=== PATIENT | male | born 1970 | race Caucasian/White ===

== ENCOUNTER 2016-10-07 20:14 | Inpatient (IN) | payer OTHER ==
--- NOTE | ~2016-10-07 | CR84 ---
[facility] A Service of [facility] & [facility] RADIOLOGY TEXT RESULTS PATIENT: CRISTINA RODRÍGUEZ LOCATION: [facility] 579-01 : [birth year] UNIT #: [id number] AGE: [address]: Kim Marques MD SEX: M ORDER DR: [id number] [facility] [address] [facility]. [place], [place] [address] [id number] I MR#: [id number] Acc #: [id number] NAME: CRISTINA RODRÍGUEZ : 1970 SEX: M STUDY DATE/TIME: 10/09/2016 15:22 UNIT: [facility] ROOM: [facility] STUDY DESCRIPTION: CR ERCP Biliary and Pancr SI Attending Physician: Kim Marques M.D. Ordering Physician: Xiang Sylvester M.D. Primary Care Physician: No Primary Care Physician MEDICAL IMAGING REPORT This report is preliminary unless electronic signature is present EXAM ERCP interpretation only INDICATIONS 46-year-old male with common bile duct obstruction. FINDINGS The fluoro time was 2 minutes and 28 seconds. 8 images were submitted. Study demonstrates a very narrow common bile duct. There was filling of the gallbladder. Endoscopist reports that a sphincterotomy was performed. Please refer to ERCP report for complete details. Dictated by... Inocencio Carias M.D. THIS IS AN ELECTRONICALLY VERIFIED REPORT Inocencio Carias M.D. at 10/11/2016 9:06 AM KATIANA/olaf TD: 10/10/2016 11:16 JOB #: [id number] MEDICAL IMAGING REPORT Page 1 of 1 COPY
--- NOTE | ~2016-10-07 | CO ---
Unit #: [id number] #: [id number] Patient: REGGIE RODRÍGUEZ [id number] [address] [place], [place] [address] [id number] I MR#: [id number] NAME: REGGIE RODRÍGUEZ ROOM: 579 Age: 46 Sex: M Admission Date: 10/08/2016 : 1970 Attending Physician: Kim Marques M.D. Consultation Date: 10/10/2016 CONSULTATION REPORT REASON FOR CONSULTATION Followup. DISCUSSION Mr. Reggie Rodríguez is a 46-year-old white male, seen on 10/10/2016 in room 579 at [facility]. The patient's brother was at the bedside. The patient was somewhat drowsy, sleepy, and unable to answer questions coherently but answer some of the questions. The patient again reported that he does not want any medication for his mood. The patient has a longstanding history of cannabis abuse. The patient is still having problem with anger, temper, mood lability but no aggressive behavior. Denied any thoughts of harming self or others. REVIEW OF SYSTEMS Complete review of systems is unremarkable except as mentioned above. MENTAL STATUS EXAMINATION General appearance, the patient dressed in hospital attire. Attention span and concentration, poor. Speech, slow. Orientation in place. Mood and affect were sad, dysphoric, flat. Thought process, circumstantial. Thought content, guarded. Recent and remote memory, poor. Language, able to name object. Fund of knowledge, impaired. Insight and judgment, impaired. DIAGNOSES Psychiatric: 1. Bipolar mood disorder, not otherwise specified, F31.89. 2. Cannabis abuse, moderate, F12.20. ASSESSMENT/PLAN 1. Supportive psychotherapy and psychoeducation provided to patient and family. 2. Advised to continue with current treatment and given information about medication. At this time, the patient does not want to travel. We will continue to follow. Consider medication if needed. Continue with the treatment on the inpatient unit at this time. Please feel free to call if any questions, telephone #[phone]. Dictated by... Ramsey Samayoa M.D. BETHANY/lexi Unit #: [id number] #: [id number] Patient: REGGIE RODRÍGUEZ TD: 10/11/2016 03:55 JOB #: [id number] CONSULTATION REPORT Page 1 of 1 X Ramsey Samayoa MD CONSULTATION REPORT
--- NOTE | ~2016-10-07 | HP ---
Unit #: [id number] #: [id number] Patient: CRISTINA RODRÍGUEZ [id number] [address] [id number] I MR#: [id number] NAME: CRISTINA RODRÍGUEZ ROOM: 579 Age: 46 Sex: M Admission Date: 10/08/2016 : 1970 Attending Physician: Kim Marques M.D. Primary Care Physician: No Primary Care Physician HISTORY AND PHYSICAL CHIEF COMPLAINT Jaundice. HISTORY OF PRESENT ILLNESS 46-year-old with a history of alcohol abuse, admitted because of jaundice. According to him, it started two days prior to the admission. He noticed that his skin, his eyes are yellow. He also noticed that his stools are very pale. He complained of nausea and vomiting and diarrhea. No abdominal pain. No abdominal swelling, no leg swelling. No fever, no chills. PAST MEDICAL HISTORY 1. History of hyperlipidemia. 2. Kidney stones. PAST SURGICAL HISTORY History of left knee surgery and right wrist surgery. SOCIAL HISTORY Smokes one pack of cigarettes per day. He uses marijuana almost every day. He uses alcohol every day but stopped taking past three weeks. He uses six to twelve beers a day. FAMILY HISTORY Positive for liver cancer in his mother. ALLERGIES None. CURRENT HOME MEDICATIONS Aspirin 325 p.o. daily. REVIEW OF SYSTEMS No headache, no visual changes. Complaining of a nodule in his right arm on the lateral side since two years. No chest pain, no skin rash. Reviewed twelve point system with him which are negative except as in HPI. No weakness, numbness, tingling. PHYSICAL EXAMINATION VITAL SIGNS: Temperature 98.1, pulse 94, respirations 16, blood pressure 156/92. GENERAL EXAMINATION: 46-year-old lying on bed, alert, oriented x3. Hard of hearing mildly. HEENT: Pupils equally reacting to light and accommodation. No pallor. Unit #: [id number] #: [id number] Patient: CRISTINA RODRÍGUEZ Jaundice present. NECK: Supple. HEART: S1, S2 heard. No murmurs. LUNGS: Clear to auscultation. No crackles, no rhonchi. ABDOMEN: Soft, nontender. Bowel sounds are present. EXTREMITIES: No pedal edema. SKIN: No rash. EXTREMITIES: Right lateral arm shows nodular-like density, likely intramuscular in the right lateral arm. Mildly tender on palpation. No signs of infection, no erythema, no abscess. DIAGNOSTIC STUDIES LAB DATA: WBC 8.6, hemoglobin 16.3, platelets 370. Urine drug screen positive for marijuana. Urinalysis shows WBC 5-10, bacteria 1+, trace leukocyte esterase. INR 1.3, sodium 135, potassium 3.5, creatinine 0.4. AST 47, ALT 122, alkaline phosphatase 236. Total bilirubin 14.2, albumin 3.7, lipase 27, Tylenol level less than 10, alcohol less than 5. CAT scan of abdomen shows intrahepatic ductal dilatation present. No extrahepatic duct dilatation. Concern for mass. Further evaluation with MRCP or ERCP recommended. ASSESSMENT AND PLAN 46-year-old admitted because of jaundice. Painless jaundice: The patient will have GI evaluation. Most likely, he needs ERCP or MRCP. I am going to check acute hepatitis panel. His alcohol level is less than 5. He does have alcohol abuse. Alcohol dependence: High risk of DTs. Monitor closely. Smoking: I am going to give him a nicotine patch. Hemoconcentration, most likely secondary to smoking and hypoxia: I am going to put him on O2 if needed. Continue with nicotine patch. I am going to also give him normal saline at 100 mL/hour. Urinary tract infection: Do urine cultures and blood cultures and start him on Rocephin and monitor his vitals. Marijuana and smoking: Advised to quit. Hypertension, uncontrolled: I am going to give him metoprolol. Dictated by Blanca Cope TD: 10/09/2016 05:33 JOB #: [id number] Unit #: [id number] #: [id number] Patient: CRISTINA RODRÍGUEZ HISTORY AND PHYSICAL Page 1 of 1 X Kim Marques MD HISTORY AND PHYSICAL
--- NOTE | ~2016-10-07 | CO ---
Unit #: [id number] #: [id number] Patient: REGGIE PIMENTEL [id number] [facility]. [place], [place] [address] [id number] I MR#: [id number] NAME: REGGIE PIMENTEL ROOM: 579 Age: 46 Sex: M Admission Date: 10/08/2016 : 1970 Attending Physician: Kim Marques M.D. Primary Care Physician: No Primary Care Physician Consultation Date: 10/09/2016 CONSULTATION REPORT CHIEF COMPLAINT Bipolar disorder, substance abuse/marijuana abuse. HISTORY OF PRESENT ILLNESS Mr. Reggie Pimentel is a 46-year-old white male seen on 10/09/16 in room 579 at [facility]. Patient was admitted on 10/07/16. Patient was admitted with jaundice, has a history of cirrhosis. Patient was having nausea, vomiting and diarrhea at the time of admission. Patient has a history of kidney stone, hyperlipidemia. Patient reported that he has been using marijuana on a daily basis to treat his bipolar. Patient reported that he does not trust any doctors or medication and would like to stay with the marijuana. Patient reported that he has used alcohol but stopped three weeks ago. Patient uses 6 to 12 beers a day. Patient currently does not want any treatment for his drinking or marijuana or for bipolar disorder. Patient however denied any suicidal or homicidal ideation, denied any psychotic symptoms but irritable, mood lability, anger, temper. PAST PSYCHIATRIC HISTORY Past psychiatric history is remarkable for history of substance abuse as mentioned above, history of bipolar disorder. Patient was on different medication, details unknown at this time. MEDICAL HISTORY History is remarkable for history of hyperlipidemia, kidney stones, jaundice, cirrhosis. MEDICATION HISTORY Patient is currently on aspirin at home. ALLERGIES No known drug allergies. FAMILY HISTORY AND SOCIAL HISTORY Patient reports he lives by himself, has a poor support system, no history of any abuse, history of substance abuse, alcohol and marijuana as mentioned above. REVIEW OF SYSTEMS Complete review of systems is remarkable for anxiety, agitation, mood lability, irritability. VITAL SIGNS Unit #: [id number] #: [id number] Patient: REGGIE PIMENTEL 98.4, 94, 16, 156/92. MENTAL STATUS EXAMINATION General appearance, patient dressed casually in hospital attire. Attention span and concentration poor. Speech rapid, loud. Oriented in time, place and person. Mood and affect irritable, angry, mad, agitated. Thought process was circumstantial. Thought content guarded, paranoid but denied thoughts of harming self or others. Recent and remote memory poor. Language, able to name objects, repeat phrases. Fund of knowledge fair. Insight and judgment are fair to poor. DIAGNOSES PSYCHIATRIC: 1. Cannabis abuse, moderate, F12.20. 2. Alcohol use disorder, severe, F10.20. 3. Bipolar mood disorder, not otherwise specified, F31.80. SECONDARY: Deferred MEDICAL: Please refer to H and P. STRESSORS: Psychosocial stressors. ASSESSMENT AND PLAN 1. Supportive psychotherapy and psychoeducation provided to patient. 2. Educated about benefits and side-effects of medication and course and prognosis of illness. Patient was educated about different medication but patient does not want to try any medication for his mood disorder at this time. 3. Advised patient to maintain sobriety which he thinks that he does not have any problem, poor insight. 4. Patient was also given information about CDIOP program at [facility], , in case if he considers. 5. Please feel free to call if any question, telephone number [phone]. Dictated by... Blanca Cortez/rudi TD: 10/10/2016 19:12 JOB #: [id number] Unit #: [id number] #: [id number] Patient: REGGIE PIMENTEL CONSULTATION REPORT Page 1 of 1 X Ramsey Samayoa MD CONSULTATION REPORT
--- NOTE | ~2016-10-07 | CT4 ---
[facility] A Service of [facility] & [facility] RADIOLOGY TEXT RESULTS PATIENT: CRISTINA RODRÍGUEZ LOCATION: [facility] 579-01 : [birth year] UNIT #: [id number] AGE: [address]: Kim Marques MD SEX: M ORDER DR: [id number] [address] [address] [id number] I MR#: [id number] #: [id number] NAME: CRISTINA RODRÍGUEZ : 1970 SEX: M STUDY DATE/TIME: 10/07/2016 21:12 UNIT: SEDOF ROOM: [id number] STUDY DESCRIPTION: CT Abd and Pelv Wo Cont Attending Physician: Kim Marques M.D. Ordering Physician: Logan Valle M.D. Primary Care Physician: No Primary Care Physician MEDICAL IMAGING REPORT This report is preliminary unless electronic signature is present. EXAM CT abdomen and pelvis without contrast. HISTORY 46-year-old male complains of abdomen being sore to touch, dark-colored urine, jaundiced, nausea, vomiting onset 2 weeks ago. History of kidney stones and daily user of marijuana. COMPARISON CT abdomen and pelvis, 10/13/2014. TECHNIQUE Axial images performed through the abdomen and pelvis without contrast. Multiplanar reconstructed images reviewed at a workstation. This CT exam was performed with one or more of the following radiation dose reduction techniques: automatic exposure control, adjustment of mA and/or kV according to patient size, and iterative reconstruction. FINDINGS ABDOMEN: Lung bases unremarkable. The liver demonstrates extensive intrahepatic ductal dilatation but no definite dilatation of the common bile duct. This raises a concern for possible centrally obstructing lesion. Further evaluation with MRCP, ERCP, as well as contrasted CT of the liver may be of benefit. Gallbladder unremarkable and nondistended. The spleen appears normal. Pancreas unremarkable. The adrenal glands appear normal. There is a subtle low-attenuation lesion in the right kidney measuring about 3 cm with some peripheral calcifications. This does not appear significantly changed from CT of 10/13/2014. Visualized GI tract remarkable for moderate gastric distension. Small and large bowel unremarkable. The appendix is normal. There are a few scattered colonic diverticula. Retroperitoneum unremarkable. [facility] A Service of [facility] & [facility] RADIOLOGY TEXT RESULTS PATIENT: CRISTINA RODRÍGUEZ LOCATION: [facility] 579-01 : [birth year] UNIT #: [id number] AGE: [address]: Kim Marques MD SEX: M ORDER DR: PELVIS: Bladder and prostate appear normal. Osseous structures and soft tissues appear normal. IMPRESSION 1. Extensive intrahepatic ductal dilatation without discrete abnormality. There does not appear to be dilatation of the extrahepatic ducts and this raises concern for a possible central mass or obstruction. Further evaluation with MRCP, ERCP, as well as a dedicated contrasted CT the liver may be of benefit. Gallbladder normal. 2. Probable complex cyst right kidney unchanged. Dictated by... Ganga Carias M.D. THIS IS AN ELECTRONICALLY VERIFIED REPORT Ganga Carias M.D. at 10/08/2016 10:52 PM HUSSAIN/thomas TD: 10/08/2016 12:26 JOB #: [id number] MEDICAL IMAGING REPORT Page 1 of 1
--- NOTE | ~2016-10-07 | OR ---
Unit #: [id number] #: [id number] Patient: CRISTINA RODRÍGUEZ [id number] [address] [place], [place] [address] [id number] Vidhi MR#: [id number] NAME: CRISTINA RODRÍGUEZ ROOM: 579 Date of Procedure: 10/09/2016 Admission Date: 10/08/2016 Surgeon: Xiang Sylvester M.D. : 1970 Attending Physician: Kim Marques M.D. Primary Care Physician: Primary Care Physician No OPERATIVE REPORT PREOPERATIVE DIAGNOSIS Deep obstructive painless jaundice. PROCEDURES PERFORMED 1. Endoscopic retrograde cholangiopancreatography and sphincterotomy. 2. Endoscopic retrograde cholangiopancreatography and brushings. POSTOPERATIVE DIAGNOSES The common bile duct was almost like a thread or a strand throughout and the opacification in the cholangiogram did not show any focal area of stricturing, in fact the whole common duct was like a sliver. There was some dilated leaks of bile in the right hepatic duct, which could be demonstrated after deep cannulation. After sphincterotomy, the brushings were obtained and we were barely able to inflate a 9 mm balloon in the the distal half of the common bile duct. The cystic duct was patent and there were gallstones in the neck of the gallbladder. RECOMMENDATIONS The cholangiographic appearances are highly suggestive of cholangiocarcinoma involving the hilar area. Decompression of the biliary tree may require percutaneous transhepatic cholangiography. After completion of procedure, I contacted Dr. Elva Joy at [facility] and he is agreed to do a repeat ERCP on coming Sunday and the patient will be transferred for the procedure on that day. In addition, I also spoke with the patient's brother in the hospital and patient's sister at her home telephonically and explained the findings and management plan. In the meantime, the patient was stayed in the hospital as a high risk of bacteremia from cholangitis and obstructive biliary tree. He will continue to be on IV antibiotics. SEDATION USED MAC. DESCRIPTION OF PROCEDURE Following detailed explanation of the potential risks and complications of an ERCP, namely perforation, bleeding, and complications related to sedation, and pancreatitis, the patient was brought to GI lab and laid in the left semiprone position. Sedation using MAC was given. Lateral-viewing duodenoscope was advanced through the oral cavity into the esophagus and advanced into the stomach. Pylorus was intubated in the usual fashion. The scope was advanced in deep descending duodenum. Upon shortening the scope, major papilla and ampullary area was visualized en Unit #: [id number] #: [id number] Patient: CRISTINA RODRÍGUEZ. Using guidewire based cannulation, selective cannulation of common bile duct was performed and a cholangiogram was obtained. The patient had a sliver of common bile duct. In fact, look like an almost like a string throughout its course from common hepatic duct all the way up to the ampullary area. The cystic duct takeoff was opacified with a gallbladder. Contrast in the gallbladder showing a large stones in the neck of the gallbladder. We then proceeded with a sphincterotomy and brushings of the distal common bile duct. After brushings, a 9 mm balloon was used to occlude the duct to obtain occlusion cholangiogram. The only difference this time being large bile leaks demonstrable on the right hepatic lobe in the occlusion cholangiogram. The scope and the accessories were then withdrawn. The patient returned to the recovery area. He will require a biliary decompression, most likely from PTC route. Dictated by... Blanca Yadav/lexi TD: 10/10/2016 05:45 JOB #: [id number] CC: Kim Marques M.D. OPERATIVE REPORT Page 1 of 1 X Xiang Sylvester MD X PROCEDURE OPERATIVE NOTE
--- NOTE | ~2016-10-07 | OR ---
Unit #: [id number] #: [id number] Patient: CRISTINA RODRÍGUEZ [id number] [address] [address] [id number] I MR#: [id number] NAME: CRISTINA RODRÍGUEZ ROOM: 579 Date of Procedure: 10/09/2016 Admission Date: 10/08/2016 Surgeon: Xiang Sylvester M.D. : 1970 Attending Physician: Kim Marques M.D. OPERATIVE REPORT PREOPERATIVE DIAGNOSES Deep jaundice and upper abdominal pain. PROCEDURES PERFORMED Upper gastrointestinal endoscopy and biopsy. POSTOPERATIVE DIAGNOSES 1. The patient had grade 1 distal erosive esophagitis. 2. There was mild focal patchy erosive duodenitis. 3. Rest of the examination up to third part of duodenum was normal. A biopsy was obtained from the antrum for CLOtest. RECOMMENDATIONS The patient will undergo ERCP a little later. SEDATION USED MAC. DESCRIPTION OF PROCEDURE Following detailed explanation of potential risks and complications of an upper endoscopy, namely perforation, bleeding, and complication related to sedation, the patient was brought to GI lab and laid in the left lateral decubitus position. Lubricated tip of the Olympus video upper endoscope was passed through the bite block into the proximal esophagus under direct vision. The entire esophageal mucosa was examined. The patient was noted to have grade 1 distal erosive esophagitis. The scope was then advanced into the gastric cavity and the latter was insufflated. Mucosa of the fundus, body, and antrum was examined and appeared unremarkable. Pylorus was intubated with visualization of the duodenal bulb. The latter was noted to have mild focal patchy erosive duodenitis. Second and third part of the duodenum were normal. Upon withdrawal and retroflexion, incisura, cardia, and greater curve was examined and biopsy was obtained from the antrum for CLOtest. The scope was then withdrawn in the distal esophagus. The entire esophageal mucosa was examined all the way up to pharynx. No additional findings were noted. The patient tolerated the procedure without any postprocedure complications. Dictated by... Blanca Yadav/lexi Unit #: [id number] #: [id number] Patient: CRISTINA RODRÍGUEZ TD: 10/10/2016 01:20 JOB #: [id number] OPERATIVE REPORT Page 1 of 1 X Xiang Sylvester MD PROCEDURE OPERATIVE NOTE
--- NOTE | ~2016-10-07 | CO ---
Unit #: [id number] #: [id number] Patient: CRISTINA PIMENTEL [id number] [address] [place], [place] [address] [id number] MR#: [id number] NAME: CRISTINA PIMENTEL ROOM: 579 Age: 46 Sex: M Admission Date: 10/08/2016 : 1970 Attending Physician: Kim Marques M.D. Consultation Date: 10/09/2016 CONSULTATION REPORT REASON FOR CONSULTATION Jaundice. HISTORY OF PRESENT ILLNESS Mr. Pimentel is a 46-year-old rather jovial white gentleman, who has presented with history of deep jaundice. He has also noticed symptoms of cholestasis in the form of pale coloration of the stool. He had some nausea, vomiting, and episode of diarrhea, the latter was gotten better. There is no history of abdominal pain or swelling. Also denies any history of fever, chills, or rigors. The patient denies any history of recent travel. Denies any history of skin rash, aphthous ulcers in the mouth, or reactive arthritis. PAST MEDICAL HISTORY Significant for history of renal stones and hyperlipidemia. The patient has had no prior abdominal surgeries. The only surgery is being left knee and right wrist surgery. SOCIAL HISTORY Drinks a pack of cigarette a day. Used marijuana on a daily basis and has been a heavy drinker for a long time, up to 12 beers a day, but has stopped drinking for the past 2 to 3 weeks. FAMILY HISTORY Significant liver cancer in his mother. HOME MEDICATIONS Include aspirin 325 mg p.o. daily. ALLERGIES He has no known drug allergies. REVIEW OF SYSTEMS Detailed review of organ systems does not reveal any recent weight loss. No history of fever, chills, or rigors. No history of headache, seizures, chest pain, or syncope. No history of cough, expectoration, or hemoptysis. No history of dysuria, hematuria, or pyuria. No history of focal seizures or extremity weakness. Rest of the review of organ systems detailed in the HPI. PHYSICAL EXAMINATION GENERAL: He is alert and oriented, comfortable, and deeply jaundiced. VITAL SIGNS: Stable with a temperature of 98, pulse 77 per minute and regular, respiratory rate is 18, blood pressure is 179/93. He weighs 254 Unit #: [id number] #: [id number] Patient: CRISTINA PIMENTEL pounds, which is close to his baseline weight. HEENT: He has mild pallor. There being deep icterus. No lymphadenopathy or peripheral edema. CARDIOVASCULAR: Normal heart sounds. No murmurs on auscultation. LUNGS: Reveal normal breath sounds. Good air entry. ABDOMEN: Soft and nontender. Liver is just palpable below the right costal margin. It is firm, smooth, and nontender. Liver and spleen are not palpable. Bowel sounds normal. Hernia sites are also normal. DIAGNOSTIC STUDIES LABORATORY RESULTS: Shows a completely normal CBC, his MCV is also normal, and platelet count is normal, the latter indicating that there is no suggestion of chronic liver disease. INR is 1.0. Serum chemistries remarkable for normal BUN and creatinine, glucose of 157. The only abnormality being a bilirubin of 14 with mild elevation of AST ALT and alkaline phosphatase of 47, 122, and 236 respectively. Amylase and lipase are normal. Alcohol level was under 5. IMAGING STUDIES: The patient also had a CT scan of the abdomen and pelvis and the latter shows an extensive intrahepatic ductal dilation with common bile duct being not dilated. Thus raising concern for a hilar biliary obstruction. The patient does not have any lymph nodes in the vicinity. 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 In the common hepatic duct, there is may be a cholangiocarcinoma. An upper endoscopy and endoscopic retrograde cholangiopancreatography decided will be scheduled shortly. The pros and cons of procedures and potential risks and complications discussed with the patient and his family that included his brother and sister. Also made telephonic call to the sister, who happens to be my patient and explained her that based upon the results of this evaluation of any further management plan. Thank you for asking me to see this pleasant gentleman. I appreciate the consult. Dictated by... Blanca Yadav/lexi TD: 10/10/2016 23:13 JOB #: [id number] CONSULTATION REPORT Page 1 of 1 X Xiang Sylvester MD CONSULTATION REPORT
[~2016-10-07 20:14] MED LIST: ANTIDEPRESSANT; BACTRIM DS TABL1 TA1 PO; BAYER ASPIRIN325 M1 PO; EFFEXOR XR PO; FLOMAX0.4 M1 PO; NO MEDICATIONS; PATIENT'S PHARMACY; PERCOCET7.5 PO; ZOFRAN ODT4 MG SL; ZOFRANODT PO
[2016-10-07 20:42] LABS: URINE SOURCE CLEAN CATCH
[2016-10-07 20:46] LABS: URINE APPEARANCE HAZY; URINE BLOOD 3+ (NEG); URINE KETONE TRACE (NEG); URINE LEUKOCYTE ESTERASE TRACE (NEG); URINE NITRATE POS (NEG); URINE PH 6.5 (5-8); URINE PROTEIN 1+ (NEG)
[2016-10-07 20:50] LABS: BASOPHIL# 0.1 X10e3 (0-0.3); BASOPHIL% 1.3 % (0-2.5); EOSINOPHIL# 0.3 X10e3 (0-0.7); EOSINOPHIL% 3.1 % (0.0-7.0); HEMATOCRIT 47.5 % (38.0-50.0); HEMOGLOBIN 16.3 gm/dL (13.0-16.0); LYMPHOCYTE# 1.5 X10e3 (1.0-3.5); LYMPHOCYTE% 17.1 % (17.0-45.0); MEAN CELL VOLUME 90.8 FL (83-96); MEAN CORPUSCULAR HEMOGLOBIN 31.2 PG (28-34); MEAN CORPUSCULAR HGB CONC 34.4 g/dL (30-36); MEAN PLATELET VOLUME 7.4 FL (6.5-11.5); MONOCYTE# 0.8 X10e3 (0-1.0); MONOCYTE% 9.8 % (3.0-12.0); NEUTROPHIL# 5.9 X10e3 (1.5-7.1); NEUTROPHIL% 68.7 % (40-75); PLATELET COUNT 370 X10e3 (140-420); RED BLOOD COUNT 5.23 X10e (3.90-5.60); RED CELL DISTRIBUTION WIDTH 14.1 % (11.0-15.5); WHITE BLOOD COUNT 8.6 X10e3 (4.0-10.5)
[2016-10-07 20:52] LABS: URINE GLUCOSE NEG (NORM)
[2016-10-07 20:53] LABS: MICRO INDICATED? YES; URINE BILIRUBIN POS (NEG); URINE COLOR BROWN
[2016-10-07 20:54] LABS: DIFF IND NO
[2016-10-07 20:55] LABS: AMPHETAMINE NEG (NEG); BARBITURATES NEG (NEG); BENZODIAZEPINES NEG (NEG); COCAINE NEG (NEG); MARIJUANA POS (NEG); OPIATES NEG (NEG); TRICYCLIC ANTIDEPRESSANTS NEG (NEG); U METHADONE NEG (NEG)
[2016-10-07 20:56] LABS: PROTHROMBIN TIME (PATIENT) 11.7 SECONDS (9.5-12.4)
[2016-10-07 20:58] LABS: CULTURE INDICATED? YES; URINE BACTERIA 1+ (NEG); URINE SQUAMOUS EPITHELIAL CELL OCCAS /[HPF]; URINE TRANSITIONAL EPI CELLS FEW /[HPF]
[2016-10-07 20:59] LABS: URINE AMORPHOUS SEDIMENT AMORP URATES; URINE GRANULAR CAST 0-2 /[HPF]; URINE MUCUS PRESENT
[2016-10-07 21:03] LABS: PARTIAL THROMBOPLASTIN TIME 30.4 SECONDS (25.6-38.1)
[2016-10-07 21:04] LABS: ALBUMIN SERUM 3.7 g/dL (3.5-5.0); BILIRUBIN,TOTAL 14.2 mg/dL (0.2-2.0); BUN/CREATININE RATIO 37.5; CALCIUM SERUM 9.4 mg/dL (8.4-10.2); CREATININE SERUM 0.4 mg/dL (0.6-1.4); GLOM FILT RATE Estimated 141.5 mL/min (>60); POTASSIUM 3.5 mmol/L (3.5-5.1); PROTEIN TOTAL SERUM 7.6 g/dL (6.0-8.3)
[2016-10-07 21:11] LABS: ACETAMINOPHEN <10 ug/mL; ALCOHOL BLOOD <5 mg/dL ([0,])
[2016-10-10 06:59] LABS: HEMATOCRIT 48.6 % (38.0-50.0); HEMOGLOBIN 16.4 gm/dL (13.0-16.0); MEAN CELL VOLUME 91.1 FL (83-96); MEAN CORPUSCULAR HEMOGLOBIN 30.7 PG (28-34); MEAN CORPUSCULAR HGB CONC 33.7 g/dL (30-36); MEAN PLATELET VOLUME 7.7 FL (6.5-11.5); RED BLOOD COUNT 5.33 X10e (3.90-5.60); RED CELL DISTRIBUTION WIDTH 14.7 % (11.0-15.5); WHITE BLOOD COUNT 12.7 X10e3 (4.0-10.5)
[2016-10-10 07:18] LABS: INR 1.1; PROTHROMBIN TIME (PATIENT) 11.1 SECONDS (9.6-11.5)
[2016-10-10 07:42] LABS: ALBUMIN SERUM 3.2 g/dL (3.5-5.0); BILIRUBIN,TOTAL 16.3 mg/dL (0.2-2.0); CALCIUM SERUM 9.2 mg/dL (8.4-10.2); CREATININE SERUM 0.5 mg/dL (0.6-1.4); GLOM FILT RATE Estimated 129.1 mL/min (>60); POTASSIUM 3.7 mmol/L (3.5-5.1); PROTEIN TOTAL SERUM 6.5 g/dL (6.0-8.3)
[2016-10-10 13:07] LABS: AMYLASE 402 U/L (0-46); LIPASE 354 U/L (22-51)
[2016-10-11 05:51] LABS: HEMATOCRIT 49.1 % (38.0-50.0); HEMOGLOBIN 16.7 gm/dL (13.0-16.0); MEAN CELL VOLUME 90.7 FL (83-96); MEAN CORPUSCULAR HEMOGLOBIN 30.8 PG (28-34); MEAN CORPUSCULAR HGB CONC 33.9 g/dL (30-36); MEAN PLATELET VOLUME 8.1 FL (6.5-11.5); RED BLOOD COUNT 5.42 X10e (3.90-5.60); RED CELL DISTRIBUTION WIDTH 14.9 % (11.0-15.5)
[2016-10-11 06:40] LABS: ALBUMIN SERUM 2.7 g/dL (3.5-5.0); CALCIUM SERUM 8.4 mg/dL (8.4-10.2); CREATININE SERUM 0.3 mg/dL (0.6-1.4); GLOM FILT RATE Estimated 159.3 mL/min (>60); POTASSIUM 3.6 mmol/L (3.5-5.1)
[2016-10-11 06:41] LABS: BILIRUBIN,TOTAL 18.3 mg/dL (0.2-2.0)
[2016-10-11 07:48] LABS: HA AB IGM (HEPPAN) Nonreactive (Nonreactive); HB CORE AB IGM (HEPPAN) Nonreactive (Nonreactive); HB S AG (HEPPAN) Nonreactive (Nonreactive); HEP C AB (HEPPAN) Nonreactive (Nonreactive); HEP C AB SIGNAL TO CUTOFF 0.01 ratio (<1.00)
[2016-10-11 15:08] LABS: URINE APPEARANCE CLOUDY; URINE BLOOD NEG (NEG); URINE COLOR DK YELLOW; URINE GLUCOSE NEG (NEG); URINE KETONE NEG (NEG); URINE LEUKOCYTE ESTERASE 1+ (NEG); URINE NITRATE POS (NEG); URINE PH 5.5 (5-8); URINE PROTEIN TRACE (NEG); URINE SPECIFIC GRAVITY 1.031 (1.003-1.035); URINE UROBILINOGEN 0.2 MG/DL (NEG)
[2016-10-11 15:10] LABS: U HYALINE CASTS AUWI 0-2 /[LPF]; URINE SQUAMOUS EPITHELIAL CELL NONE SEEN /[HPF]; UWBCS1 AUWI 0-2 (0-5)
[2016-10-11 15:23] LABS: URBCS1 AUWI 0-2 /[HPF] (0-2); URINE BACTERIA AUWI 2+ (NEGATIVE)
[2016-10-12 05:26] LABS: HEMATOCRIT 44.6 % (38.0-50.0); HEMOGLOBIN 14.8 gm/dL (13.0-16.0); MEAN CELL VOLUME 91.6 FL (83-96); MEAN CORPUSCULAR HEMOGLOBIN 30.4 PG (28-34); MEAN CORPUSCULAR HGB CONC 33.2 g/dL (30-36); MEAN PLATELET VOLUME 8.3 FL (6.5-11.5); RED BLOOD COUNT 4.87 X10e (3.90-5.60); RED CELL DISTRIBUTION WIDTH 14.5 % (11.0-15.5); WHITE BLOOD COUNT 17.5 X10e3 (4.0-10.5)
[2016-10-12 06:31] LABS: ALBUMIN SERUM 2.5 g/dL (3.5-5.0); ALKALINE PHOSPHATASE 156 U/L (32-92); ALT (SGPT) 58 U/L (10-40); AST (SGOT) 35 U/L (10-42); BLOOD UREA NITROGEN 11 mg/dL (9-23); BUN/CREATININE RATIO 36.66; CALCIUM SERUM 8.4 mg/dL (8.4-10.2); CARBON DIOXIDE 24 mmol/L (22-31); CHLORIDE 100 mmol/L (100-111); CREATININE SERUM <0.3 mg/dL (0.6-1.4); GLUCOSE FASTING 113 mg/dL (70-110); POTASSIUM 4.1 mmol/L (3.5-5.1); PROTEIN TOTAL SERUM 5.5 g/dL (6.0-8.3); SODIUM 134 mmol/L (135-145)
[2016-10-12 06:32] LABS: BILIRUBIN,TOTAL 21.7 mg/dL (0.2-2.0); GLOM FILT RATE Estimated >60.0 mL/min (>60)
== END 2016-10-12 18:11 | DRG 442 ==
LOC: SED 20:14 → SEDOF 22:05 → C5C 10-08 11:23
PROVIDERS: Internal Medicine; Internal Medicine Gastroenterology; Nurse Practitioner
PROC: 0FB98ZX Excision of Common Bile Duct, Via Natural or Artificial Opening Endoscopic, Diagnostic (ICD-10-PCS; principal; 2016-10-09 12:00)
PROC: BF10YZZ Fluoroscopy of Bile Ducts using Other Contrast (ICD-10-PCS; 2016-10-09 12:00)
PROC: 0DB68ZX Excision of Stomach, Via Natural or Artificial Opening Endoscopic, Diagnostic (ICD-10-PCS; 2016-10-09 16:03)
DX: R17 Unspecified jaundice (principal); N39.0 Urinary tract infection, site not specified; E44.1 Mild protein-calorie malnutrition; I10 Essential (primary) hypertension; K22.10 Ulcer of esophagus without bleeding; F31.89 Other bipolar disorder; E78.5 Hyperlipidemia, unspecified; Z87.442 Personal history of urinary calculi; Z79.82 Long term (current) use of aspirin; F17.210 Nicotine dependence, cigarettes, uncomplicated; F10.20 Alcohol dependence, uncomplicated; Z71.51 Drug abuse counseling and surveillance of drug abuser; Z71.6 Tobacco abuse counseling; F12.20 Cannabis dependence, uncomplicated; K29.80 Duodenitis without bleeding; Z68.36 Body mass index [BMI] 36.0-36.9, adult; Y90.0 Blood alcohol level of less than 20 mg/100 ml
CPT/HCPCS: 36415; 74176; 74330; 80053; 80074; 80307; 81003; 82150; 83690; 85025; 85027; 85610; 85730; 87040; 87077; 87086; 88104; 88305; 94760; 99285; G0480; J0696; J1610; J2250; J2270; J2550